=== PATIENT | female | born 2005 | race Two or more races ===

== ENCOUNTER → 2025-03-07 | Outpatient (CLI) | payer BC, SELFPAY ==
--- NOTE | 2025-03-07 | XR_ITS ---
Examination: Knee, right , 3 views Technique: Knee AP, lateral, oblique 3 views Date and time of exam: March 07, 2025 1229 hours INDICATIONS: Injury to the knee 6 years ago with pain beginning 3 days ago. FINDINGS: Mild to moderate narrowing medial joint space right knee No fracture or dislocation No ossified joint bodies IMPRESSION: Mild to moderate narrowing medial joint space right knee
== END | disposition home or self-care (01) ==
PROVIDERS: PCP Family Medicine; Referring Provider Nurse Practitioner Family; Visit Provider Nurse Practitioner Family
DX: M25.861 Other specified joint disorders, right knee (principal)
CPT/HCPCS: 73564